=== PATIENT | male | born 1965 | race Caucasian/White ===

== ENCOUNTER 2017-04-07 09:02 | Inpatient (IN) | payer MEDICAID, OTHER ==
[~2017-04-07] VITALS: Ht 188 cm; Wt 136.5 kg
[~2017-04-07 09:02] MED LIST: ACLI400A2 INH; ALLO100T30 PO; ASPI-621 PO; BUDE10.2 INH; CARV3.122 PO; CARV6.252 PO; CLOP75TA PO; DIGO125T PO; DILT360C26 PO; DILT420C10 PO; ESOM40CA PO; FURO80TA77 PO; HYDR-3245 PO; LAMO200T3 PO; LEVA15HF4 INH; LINA290C PO; LOSA50TA6 PO; METH750T2 PO; MONT10TA6 PO; ONDA4TAB13 SL; POLY17PO3 PO; POTA20TA6 PO; RIVA20TA PO; SIME180C44 PO; TAMS-11 PO; TRAZ50TA18 PO
[2017-04-07] MEDS ORDERED: ASPIRIN 81 MG TABLET CHEW PO ONE (09:30)
[2017-04-07] MEDS ORDERED: ONDANSETRON 2MG/ML, 2ML IVPush ONE (09:30)
[2017-04-07] MEDS ORDERED: SODIUM CHLORIDE FLUSH 10ML SYR IVF ONE (09:30)
[2017-04-07] MEDS ORDERED: MORPHINE SULFATE 4 MG/ML, 1ML ONE ×2 (09:32→10:40)
[2017-04-07] MEDS ORDERED: NITROGLYCERIN SINGLE TAB 0.4 MG SL ONE (09:33)
[2017-04-07] MEDS ORDERED: ASPIRIN 81 MG TABLET CHEW ONE (09:33)
[2017-04-07] MEDS ORDERED: ONDANSETRON 2MG/ML, 2ML ONE (09:33)
[2017-04-07] MEDS: NITROGLYCERIN SINGLE TAB 0.4 MG SL PRN ×2 (09:38→10:44)
[2017-04-07] MEDS ORDERED: CLOB15CR19 TP (09:49)
[2017-04-07] MEDS ORDERED: LOSA25TA5 PO (09:49)
[2017-04-07] MEDS ORDERED: TIOT18CA INH (09:49)
[2017-04-07] MEDS ORDERED: DICL100G19 TP (09:49)
[2017-04-07] MEDS ORDERED: PANT20TA2 PO (09:49)
[2017-04-07] MEDS ORDERED: ALBU0.63 NEB (09:49)
[2017-04-07] MEDS: MORPHINE SULFATE 4 MG/ML, 1ML IVPush PRN ×2 (09:53→10:44)
[2017-04-07 09:55] LABS: HEMATOCRIT 42.4 % (39.2-51.8); HEMOGLOBIN 13.8 g/dL (13.7-18.0); WHITE BLOOD COUNT 11.2 x10^3/uL (3.4-10)
[2017-04-07 10:52] LABS: BLOOD UREA NITROGEN 17 mg/dL (7-18)
[2017-04-07 11:06] LABS: ASPARTATE AMINO TRANSFERASE 17 U/L (15-37)
[2017-04-07] MEDS ORDERED: FAMOTIDINE 20 MG/2 ML ONE (11:13)
[2017-04-07] MEDS ORDERED: MAALOX/HYOSCYAMINE/LIDOCAINE 45 ML BTL ONE (11:13)
[2017-04-07 11:18] LABS: IS PT STATUS REG ER OR PRE ER? YES
[2017-04-07] MEDS ORDERED: MAALOX/HYOSCYAMINE/LIDOCAINE 45 ML BTL PO ONE (11:30)
[2017-04-07] MEDS ORDERED: FAMOTIDINE 20 MG/2 ML IVP ONE (11:30)
[2017-04-07] MEDS ORDERED: SODIUM CHLORIDE FLUSH 10ML SYR IVF PRN (12:30)
[2017-04-07 13:30] VITALS: BP 146/74
[2017-04-07] MEDS ORDERED: CLOBETASOL PROPIONATE CRM 0.05%, 15GM TP PRN (13:30)
[2017-04-07] MEDS ORDERED: TEMPLATE NON-FORMULARY MED. (Albuterol Sulfate (Albuterol Sulfate**) 1 VIAL) NEB PRN (13:30)
[2017-04-07] MEDS ORDERED: ACETAMINOPHEN 325 MG TABLET PO PRN (13:30)
[2017-04-07] MEDS ORDERED: GUAIFENESIN/DM 200-20MG, 10ML UDC PO PRN (13:30)
[2017-04-07] MEDS ORDERED: ENOXAPARIN 40 MG/0.4 ML SQ SCH (13:30)
[2017-04-07] MEDS ORDERED: ALBUTEROL SULFATE 2.5 MG/3 ML NPPB PRN (13:30)
[2017-04-07] MEDS ORDERED: NITROGLYCERIN 0.4 MG BOTTLE (25 TABS) SL PRN (13:30)
[2017-04-07] MEDS ORDERED: ONDANSETRON ODT 4 MG BC PRN (13:30)
[2017-04-07] MEDS ORDERED: HYDROcodone/APAP 10/325 MG TABLET PO PRN (13:30)
[2017-04-07] MEDS ORDERED: NITROGLYCERIN 0.4 MG/SPRAY SL PRN (13:30)
[2017-04-07 16:01] LABS: IS PT STATUS REG ER OR PRE ER? NO
[2017-04-07 20:12] VITALS: BP 113/78
[2017-04-07] MEDS ORDERED: TRAZODONE 50MG TABLET PO SCH (21:00)
[2017-04-07] MEDS: FLUTICASONE/VILANTEROL 200-25MCG/INH INH SCH (21:27)
[2017-04-07] MEDS: CARVEDILOL 6.25 MG TABLET PO SCH (21:27)
[2017-04-07 22:43] LABS: IS PT STATUS REG ER OR PRE ER? NO
[2017-04-08 03:01] VITALS: BP 121/65
[2017-04-08] MEDS ORDERED: ASPIRIN 81 MG TABLET EC PO SCH (06:00)
[2017-04-08 07:25] VITALS: BP 146/89
[2017-04-08] MEDS: FLUTICASONE/VILANTEROL 200-25MCG/INH INH SCH (08:18)
[2017-04-08] MEDS: CARVEDILOL 6.25 MG TABLET PO SCH (08:20)
[2017-04-08] MEDS ORDERED: IPRATROPIUM 0.5 MG/2.5 ML INHA NPPB SCH (09:00)
[2017-04-08] MEDS ORDERED: MONTELUKAST 10 MG TABLET PO SCH (09:00)
[2017-04-08] MEDS ORDERED: DILTIAZEM 300 MG CAP.ER.24H PO SCH (09:00)
[2017-04-08] MEDS ORDERED: DILTIAZEM 120 MG CAP.ER.24H PO SCH (09:00)
[2017-04-08] MEDS ORDERED: DIGOXIN 0.125 MG TABLET PO SCH (09:00)
[2017-04-08] MEDS ORDERED: LOSARTAN 25MG TABLET PO SCH (09:00)
[2017-04-08] MEDS ORDERED: LAMOTRIGINE 200 MG TABLET PO SCH (09:00)
[2017-04-08] MEDS ORDERED: POTASSIUM CHLORIDE 20 MEQ TAB.ER.PRT PO SCH (09:00)
[2017-04-08] MEDS ORDERED: PANTOPRAZOLE 20MG TABLET PO SCH (09:00)
[2017-04-08] MEDS ORDERED: FUROSEMIDE 80 MG TABLET PO SCH (09:00)
[2017-04-08] MEDS ORDERED: ALLOPURINOL 100 MG TABLET PO SCH (09:00)
[2017-04-08] MEDS ORDERED: TAMSULOSIN 0.4 MG CAP.ER.24H PO SCH (09:00)
[2017-04-08] MEDS ORDERED: REGADENOSON 0.4 MG/5 ML SYRINGE ONE (09:34)
[2017-04-08 12:35] VITALS: BP 100/64
== END 2017-04-08 17:55 | disposition home or self-care (01) | DRG 311 ==
LOC: ED 09:45 → 5SO 12:18 → UNDOADMIN 13:24
PROVIDERS: ADMIT Family Medicine; ATTEND Family Medicine
DX: I24.9 Acute ischemic heart disease, unspecified (principal); I11.0 Hypertensive heart disease with heart failure; I42.9 Cardiomyopathy, unspecified; I50.9 Heart failure, unspecified; E66.9 Obesity, unspecified; F31.9 Bipolar disorder, unspecified; F17.200 Nicotine dependence, unspecified, uncomplicated; F43.10 Post-traumatic stress disorder, unspecified; G47.33 Obstructive sleep apnea (adult) (pediatric); I48.2 Chronic atrial fibrillation; J44.9 Chronic obstructive pulmonary disease, unspecified; K21.9 Gastro-esophageal reflux disease without esophagitis; M10.9 Gout, unspecified; M54.5 Low back pain; G89.29 Other chronic pain; N40.0 Benign prostatic hyperplasia without lower urinary tract symptoms; R09.1 Pleurisy; Z68.38 Body mass index [BMI] 38.0-38.9, adult
CPT/HCPCS: 36415; 71010; 78452; 80053; 80162; 83690; 83735; 83880; 84443; 84484; 85025; 85610; 85730; 93005; 93017; 96372; 96374; 96375; 96376; J1650; J2405; J2785; A9502; C9898; S0028

== ENCOUNTER 2017-07-13 11:02 | Emergency (ER) | payer MEDICAID ==
[~2017-07-13] VITALS: Ht 188 cm; Wt 130.0 kg
[~2017-07-13 11:02] MED LIST changes: +ALBU0.63 NEB; +CLOB15CR19 TP; +DICL100G19 TP; +LOSA25TA5 PO; +PANT20TA2 PO; +TIOT18CA INH
[2017-07-13 11:04] VITALS: BP 163/83
[2017-07-13] MEDS ORDERED: IBUPROFEN 200 MG TABLET PO ONE (12:30)
[2017-07-13] MEDS ORDERED: HYDROcodone/APAP 5/325 TABLET PO ONE (12:30)
[2017-07-13] MEDS ORDERED: HYDROcodone/APAP 5/325 TABLET ONE (12:41)
[2017-07-13] MEDS ORDERED: IBUPROFEN 200 MG TABLET ONE (12:41)
== END 2017-07-13 13:58 | disposition home or self-care (01) ==
LOC: ED 13:30
DX: M79.672 Pain in left foot (principal); F31.9 Bipolar disorder, unspecified; J44.9 Chronic obstructive pulmonary disease, unspecified; M10.9 Gout, unspecified; Z88.0 Allergy status to penicillin; Z90.49 Acquired absence of other specified parts of digestive tract
CPT/HCPCS: 99284